=== PATIENT | female | born 1980 | race Caucasian/White ===

== ENCOUNTER 2018-08-20 22:42 | Emergency (ER) | payer MEDICAID ==
[~2018-08-20] VITALS: Ht 152.4 cm; Wt 61.7 kg
[2018-08-20 22:45] VITALS: BP 136/100
[2018-08-21] MEDS ORDERED: KETOROLAC 60 MG/2 ML VIAL IM ONE (00:15)
[2018-08-21 00:55] VITALS: BP 135/90
== END 2018-08-21 00:50 | disposition home or self-care (01) ==
LOC: MED 22:42
DX: G44.209 Tension-type headache, unspecified, not intractable (principal)
CPT/HCPCS: 70450; 81002; 81025; 96372; 99284; J1885

== ENCOUNTER 2020-01-26 18:39 | Emergency (ER) | payer MEDICAID ==
[~2020-01-26] VITALS: Ht 157.5 cm; Wt 70.3 kg
[2020-01-26 18:43] VITALS: BP 122/73
--- NOTE | 2020-01-26 18:43 | NUR ---
AMBULATED TO BED 9
--- NOTE | 2020-01-26 19:06 | NUR ---
REPORT RECEIVED FROM LYNDON RN, TRANSFER OF CARE AT THIS TIME
--- NOTE | 2020-01-26 19:25 | NUR ---
ERMD AT BEDSIDE
[2020-01-26] MEDS ORDERED: DICYCLOMINE HCL LIQUID 10 MG/5 ML UDC PO ONE (19:35)
[2020-01-26] MEDS ORDERED: PANTOPRAZOLE 40 MG TABEC PO ONE (19:35)
[2020-01-26] MEDS ORDERED: LIDOCAINE VISCOUS 2% 20 ML UDC PO ONE (19:35)
[2020-01-26] MEDS ORDERED: ALUMINUM HYD/MAG/SIMETHICONE 30 ML UDC PO ONE (19:35)
--- NOTE | 2020-01-26 19:45 | NUR ---
39 YEAR OLD FEMALE COMPLAINS OF COUGH X 3 DAYS AND UPPER EPIGASTRIC PAIN. PT DENIES CONTACT WITH COVID PT, COVID PRECAUTIONS INITITATED. PT STATES COUGH DRY. PT AOX4, BREATHING EVEN AND UNLABORED, SKIN WARM AND DRY. BED IN LOWEST POSITION, LOCKED, BED RAIL UPX1. PMH - DENIES ALLERGIES - NKA
[2020-01-26 20:35] VITALS: BP 128/65
--- NOTE | 2020-01-26 20:35 | NUR ---
Patient discharged with v/s stable. Written and verbal after care instructions given and explained. Patient alert, oriented and verbalized understanding of instructions. Ambulatory with steady gait. All questions addressed prior to discharge. ID band removed. Patient advised to follow up with PMD. Rx of protonix, carafate given. Patient educated on indication of medication including possible reaction and side effects. Opportunity to ask questions provided and answered. ERMD aware of patient's 103.0 temperature, states it is okay for discharge.
== END 2020-01-26 20:35 | disposition home or self-care (01) ==
LOC: MED 18:39
DX: K29.60 Other gastritis without bleeding (principal); R05 Cough; R50.9 Fever, unspecified
CPT/HCPCS: 71045; 99284; Q0092

== ENCOUNTER 2020-01-29 19:43 | Emergency (ER) | payer MEDICAID, SELFPAY ==
[~2020-01-29] VITALS: Ht 152.4 cm; Wt 70.3 kg
--- NOTE | 2020-01-29 19:45 | NUR ---
PT AMBUALTORY TO ROOM 9
[2020-01-29 19:46] VITALS: BP 126/65
[2020-01-29] MEDS ORDERED: KETOROLAC 30 MG/ML VIAL IVP ONE (20:25)
[2020-01-29] MEDS ORDERED: ONDANSETRON 4 MG/2 ML VIAL IVP ONE (20:25)
[2020-01-29] MEDS ORDERED: NACL 0.9% 1,000 ML IV ONE (20:25)
--- NOTE | 2020-01-29 20:25 | NUR ---
PT ASSESSMENT COMPLETE. PT PLACED IN GOWN AND ATTACHED TO CARDIAC MONITORING SYSTEM. SAFETY MEASURES IN PLACE. BED IN LOWEST POSITION. WILL CONTINUE TO MONITOR.
--- NOTE | 2020-01-29 20:45 | NUR ---
FLU SWAB AND BLOOD WORK COLLECTED. SAMPLES GIVEN TO LAB.
--- NOTE | 2020-01-29 20:55 | NUR ---
RAD AT BEDSIDE FOR CHEST XRAY
[2020-01-29 21:01] LABS: BASOPHILS # (AUTO) 0.1 K/uL (0.00-0.22); EOSINOPHILS # (AUTO) 0.1 K/uL (0-0.4); EOSINOPHILS % (AUTO) 0.7 % (0.0-4.0); HEMATOCRIT 32.7 % (36-48); HEMOGLOBIN 10.6 g/dL (12.0-16.0); LYMPHOCYTES # (AUTO) 2.1 K/uL (2.5-16.5); LYMPHOCYTES % (AUTO) 28.4 % (20.5-51.1); MEAN CORPUSCULAR HEMOGLOBIN 26 pg (27-31); MEAN CORPUSCULAR HGB CONC 33 g/dL (33-37); MEAN CORPUSCULAR VOLUME 78.9 fL (80-94); MONOCYTES # (AUTO) 0.4 K/uL (0.8-1.0); MONOCYTES % (AUTO) 5.5 % (1.7-9.3); NEUTROPHILS # (AUTO) 4.8 K/uL (1.8-7.7); NEUTROPHILS % (AUTO) 64.4 % (42.2-75.2); PLATELET COUNT (AUTO) 321 K/uL (140-450); RED BLOOD CELL COUNT(AUTO) 4.14 MIL/uL (4.20-5.40); RED CELL DISTRIBUTION WIDTH 15.1 % (11.6-13.7); WHITE BLOOD COUNT (AUTO) 7.4 K/uL (4.8-10.8)
[2020-01-29] MEDS ORDERED: AZITHROMYCIN 250 MG TAB PO ONE (21:55)
[2020-01-29 21:58] LABS: APPEARANCE,URINE SL CLOUDY (CLEAR); BILIRUBIN,URINE 1+ (NEGATIVE); BLOOD, URINE NEGATIVE (NEGATIVE); COLOR,URINE YELLOW (YELLOW); LEUKOCYTE ESTERASE ,URINE 1+ (NEGATIVE); NITRITE, URINE NEGATIVE (NEGATIVE); UGLUCOSE NEGATIVE (NEGATIVE)
[2020-01-29 22:10] LABS: RBC,URINE NONE SEEN /HPF (0-5)
--- NOTE | 2020-01-29 22:20 | NUR ---
PT LAYING DOWN IN BED. VISIBLE CHEST RISE AND FALL NOTED. O2 SAT AT 96%RA. PT HAS DECREASED PAIN LEVEL. WILL CONTINUE TO MONITOR.
[2020-01-29 22:30] LABS: ALBUMIN 3.7 g/dL (3.4-5.0); ANION GAP 17.7 (8-16); CARBON DIOXIDE 24.2 mmol/L (21-32); CREATININE 0.9 mg/dL (0.6-1.3); POTASSIUM 3.9 mmol/L (3.5-5.1); TOTAL BILIRUBIN 0.4 mg/dL (0.0-1.0)
[2020-01-29 22:52] VITALS: BP 101/47
--- NOTE | 2020-01-29 22:52 | NUR ---
Patient discharged with v/s stable. Written and verbal after care instructions given and explained. Patient alert, oriented and verbalized understanding of instructions. Ambulatory with steady gait. All questions addressed prior to discharge. ID band removed. Patient advised to follow up with PMD. Rx of AZITHROMYCIN AND PROMETHAZINE WITH CODEINE given. Patient educated on indication of medication including possible reaction and side effects. Opportunity to ask questions provided and answered. PT ADVISED TO TAKE COVID-19 PRECAUTIONS AND RESULTS WILL BE PHONED TO HER.
--- NOTE | 2020-02-01 01:00 | NUR ---
LATE ENTRY--RECEVIED A POSITIVE COVID SWAB. RESULT GIVEN TO INFECTION CONTROL OFFICE.
--- NOTE | 2020-02-01 16:58 | NUR ---
C&S RECEIVED FOR URINE CULTURE. NEW RX NEEDED TO GIVE PATIENT FOR URINE. RX CALLED IN FOR MACROBID 100MG PO BID X10 DAYS WAS CALLED INTO [facility] IN [place] FOR PATIENT. PT VERBALIZED UNDERSTANDING. PT ADVISED TO FOLLOW UP WITH PHARMACY IN 30 MINS.
== END 2020-01-29 22:52 | disposition home or self-care (01) ==
LOC: MED 19:43 → EEVIPCON 19:43 → MED 22:52
DX: U07.1 COVID-19 (principal); J18.9 Pneumonia, unspecified organism; N39.0 Urinary tract infection, site not specified; Z79.899 Other long term (current) drug therapy
CPT/HCPCS: 36415; 71045; 80053; 81001; 83605; 83690; 85025; 87040; 87086; 87186; 87804; 96361; 96374; 96375; 99284; C9803; J1885; J2405; J7030; U0003

== ENCOUNTER 2020-08-04 15:37 | Emergency (ER) | payer MEDICAID, SELFPAY ==
[~2020-08-04] VITALS: Ht 152.4 cm; Wt 68.0 kg
[2020-08-04 15:51] VITALS: BP 103/68
--- NOTE | 2020-08-04 15:57 | NUR ---
39/F BIB SELF C/O RIGHT FLANK PAIN 9/10 X 5 DAYS. DENIES DYSURIA.PMH: DENIES. DENIES N/V/D; SKIN IS PINK/WARM/DRY; AAOX4 WITH EVEN AND STEADY GAIT; LUNGS CLEAR BL; HR EVEN AND REGULAR; PT DENIES ANY FEVER, CP, SOB, OR COUGH AT THIS TIME; PATIENT STATES PAIN OF 9/10 AT THIS TIME.
[2020-08-04] MEDS ORDERED: HYDROcodone/APAP 5/325 MG 1 TAB TAB PO ONE (17:20)
[2020-08-04 17:33] VITALS: BP 103/68
--- NOTE | 2020-08-04 17:33 | NUR ---
Patient discharged with v/s stable. Written and verbal after care instructions given and explained. Patient alert, oriented and verbalized understanding of instructions. Ambulatory with steady gait. All questions addressed prior to discharge. ID band removed. Patient advised to follow up with PMD. Rx of TRAMADOL & BACTRIM given. Patient educated on indication of medication including possible reaction and side effects. Opportunity to ask questions provided and answered.
== END 2020-08-04 17:33 | disposition home or self-care (01) ==
LOC: MED 15:37
DX: N39.0 Urinary tract infection, site not specified (principal); Z90.49 Acquired absence of other specified parts of digestive tract; Z98.890 Other specified postprocedural states
CPT/HCPCS: 81002; 81025; 99283

== ENCOUNTER 2020-08-11 18:37 | Emergency (ER) | payer MEDICAID, SELFPAY ==
[~2020-08-11] VITALS: Ht 152.4 cm; Wt 68.0 kg
[2020-08-11 20:30] VITALS: BP 120/74
--- NOTE | 2020-08-11 20:33 | NUR ---
TO LOBBY A/W BED AMBULATORY
--- NOTE | 2020-08-11 21:11 | NUR ---
SEEN AND EXAMINED BY MICHAEL WITH ORDERS AND CARRIED OUT
[2020-08-11 22:04] LABS: BASOPHILS # (AUTO) 0.1 K/uL (0.00-0.22); BASOPHILS % (AUTO) 0.9 % (0.0-2.0); EOSINOPHILS # (AUTO) 0.3 K/uL (0-0.4); EOSINOPHILS % (AUTO) 3.1 % (0.0-4.0); HEMATOCRIT 33.4 % (36-48); HEMOGLOBIN 10.9 g/dL (12.0-16.0); LYMPHOCYTES # (AUTO) 4.2 K/uL (2.5-16.5); LYMPHOCYTES % (AUTO) 50.2 % (20.5-51.1); MEAN CORPUSCULAR HEMOGLOBIN 26 pg (27-31); MEAN CORPUSCULAR HGB CONC 33 g/dL (33-37); MEAN CORPUSCULAR VOLUME 80.7 fL (80-94); MONOCYTES # (AUTO) 0.7 K/uL (0.8-1.0); MONOCYTES % (AUTO) 8.4 % (1.7-9.3); NEUTROPHILS # (AUTO) 3.1 K/uL (1.8-7.7); NEUTROPHILS % (AUTO) 37.4 % (42.2-75.2); PLATELET COUNT (AUTO) 372 K/uL (140-450); RED BLOOD CELL COUNT(AUTO) 4.14 MIL/uL (4.20-5.40); RED CELL DISTRIBUTION WIDTH 17.7 % (11.6-13.7); WHITE BLOOD COUNT (AUTO) 8.3 K/uL (4.8-10.8)
[2020-08-11 22:20] LABS: ALBUMIN 4.2 g/dL (3.4-5.0); ANION GAP 11.9 (8-16); CARBON DIOXIDE 27.2 mmol/L (21-32); CREATININE 0.8 mg/dL (0.6-1.3); POTASSIUM 4.1 mmol/L (3.5-5.1); TOTAL BILIRUBIN 0.2 mg/dL (0.0-1.0)
--- NOTE | 2020-08-12 | NUR ---
RESULTS BACK AND NOTED BY ERMD AND FOR D/C
[2020-08-12 00:08] VITALS: BP 121/80
--- NOTE | 2020-08-12 00:08 | NUR ---
Patient discharged with v/s stable. Written and verbal after care instructions given and explained. Patient alert, oriented and verbalized understanding of instructions. Ambulatory with steady gait. All questions addressed prior to discharge. ID band removed. Patient advised to follow up with PMD. Rx of MOTRIN , PROTONIX given. Patient educated on indication of medication including possible reaction and side effects. Opportunity to ask questions provided and answered.
== END 2020-08-12 00:08 | disposition home or self-care (01) ==
LOC: MED 18:37
DX: K80.20 Calculus of gallbladder without cholecystitis without obstruction (principal)
CPT/HCPCS: 36415; 76705; 80053; 83690; 85025; 99284

== ENCOUNTER 2023-06-03 21:29 | Emergency (ER) | payer MEDICAID ==
[~2023-06-03] VITALS: Ht 152.4 cm; Wt 67.1 kg
[2023-06-03 22:40] VITALS: BP 102/56; PULSE 78; RESP 16; TEMP 97.6; O2SAT 99
[2023-06-04] MEDS ORDERED: BENZ150C2 PO (01:52)
[2023-06-04] MEDS ORDERED: DOXY-690 PO (01:52)
[2023-06-04 02:20] VITALS: BP 102/56; PULSE 78; RESP 16; TEMP 97.6; O2SAT 99
== END 2023-06-04 02:20 | disposition home or self-care (01) ==
LOC: MED 21:29
DX: J18.9 Pneumonia, unspecified organism (principal); J45.909 Unspecified asthma, uncomplicated; Z79.899 Other long term (current) drug therapy
CPT/HCPCS: 71045; 99283; Q0092

== ENCOUNTER 2023-07-04 09:52 | Emergency (ER) | payer MEDICAID ==
[~2023-07-04] VITALS: Ht 152.4 cm; Wt 65.5 kg
[~2023-07-04 09:52] MED LIST: BENZ150C2 PO; DOXY-690 PO
[2023-07-04 09:55] VITALS: BP 114/57; PULSE 80; RESP 18; TEMP 98.1; O2SAT 99
[2023-07-04] MEDS ORDERED: PRED20TA5 PO (10:40)
[2023-07-04 10:50] VITALS: BP 114/57; PULSE 80; RESP 18; TEMP 98.1; O2SAT 99
== END 2023-07-04 10:50 | disposition home or self-care (01) ==
LOC: MED 09:52
DX: H00.011 Hordeolum externum right upper eyelid (principal); R05.9 Cough, unspecified; Z79.899 Other long term (current) drug therapy; Z79.2 Long term (current) use of antibiotics
CPT/HCPCS: 99283

== ENCOUNTER 2023-09-09 18:54 | Emergency (ER) | payer MEDICAID ==
[~2023-09-09] VITALS: Ht 152.4 cm; Wt 68.3 kg
[~2023-09-09 18:54] MED LIST changes: +PRED20TA5 PO
[2023-09-09 19:27] VITALS: BP 138/81; PULSE 78; RESP 22; TEMP 97.1; O2SAT 97
[2023-09-09] MEDS ORDERED: ACETAMINOPHEN EXTRA STRENGTH 500 MG TAB PO ONE (20:15)
[2023-09-09 20:40] LABS: BASOPHILS # (AUTO) 0.1 K/uL (0.00-0.22); BASOPHILS % (AUTO) 0.5 % (0.0-2.0); EOSINOPHILS # (AUTO) 0.1 K/uL (0-0.4); EOSINOPHILS % (AUTO) 0.6 % (0.0-4.0); HEMATOCRIT 30.7 % (36-48); HEMOGLOBIN 9.5 g/dL (12.0-16.0); LYMPHOCYTES # (AUTO) 3.6 K/uL (2.5-16.5); LYMPHOCYTES % (AUTO) 25.8 % (20.5-51.1); MEAN CORPUSCULAR HEMOGLOBIN 22 pg (27-31); MEAN CORPUSCULAR HGB CONC 31 g/dL (33-37); MEAN CORPUSCULAR VOLUME 71.8 fL (80-94); MONOCYTES # (AUTO) 0.9 K/uL (0.8-1.0); MONOCYTES % (AUTO) 6.7 % (1.7-9.3); NEUTROPHILS # (AUTO) 9.3 K/uL (1.8-7.7); NEUTROPHILS % (AUTO) 66.4 % (42.2-75.2); PLATELET COUNT (AUTO) 452 K/uL (140-450); RED BLOOD CELL COUNT(AUTO) 4.28 MIL/uL (4.20-5.40); RED CELL DISTRIBUTION WIDTH 19.4 % (11.6-13.7); WHITE BLOOD COUNT (AUTO) 14.1 K/uL (4.8-10.8)
[2023-09-09 20:59] LABS: ALBUMIN 3.9 g/dL (3.4-5.0); ANION GAP 15.5 (8-16); CALCIUM 8.9 mg/dL (8.5-10.1); CARBON DIOXIDE 22.2 mmol/L (21-32); CREATININE 0.5 mg/dL (0.6-1.3); POTASSIUM 3.7 mmol/L (3.5-5.1); TOTAL BILIRUBIN 0.3 mg/dL (0.0-1.0); TOTAL PROTEIN, SERUM 7.9 g/dL (6.4-8.2)
[2023-09-09 21:55] LABS: APPEARANCE,URINE SL CLOUDY (CLEAR); BILIRUBIN,URINE 1+ (NEGATIVE); BLOOD, URINE 3+ (NEGATIVE); COLOR,URINE YELLOW (YELLOW); LEUKOCYTE ESTERASE ,URINE TRACE (NEGATIVE); NITRITE, URINE NEGATIVE (NEGATIVE); PROTEIN,URINE 1+ (NEGATIVE); UGLUCOSE NEGATIVE (NEGATIVE); UROBILINOGEN,URINE 0.2 EU/dL (0.2 - 1)
[2023-09-09 21:57] LABS: BACTERIA,URINE 0-2 /HPF (None Seen); ICTOTEST NEGATIVE (NEGATIVE); MUCUS,URINE None Seen /LPF (None Seen); RBC,URINE 20-50 /HPF (0-5); SQUAMOUS EPITHELIAL CELL,UR 0-3 (FEW) /LPF (0-3 (FEW)); WBC,URINE 0-5 /HPF (0-5)
[2023-09-09] MEDS ORDERED: ACET-10509 PO (22:51)
[2023-09-09] MEDS ORDERED: NITR100C7 PO (22:53)
== END 2023-09-09 23:09 | disposition home or self-care (01) ==
LOC: MED 18:54
DX: O20.0 Threatened abortion (principal); O23.41 Unspecified infection of urinary tract in pregnancy, first trimester; Z3A.01 Less than 8 weeks gestation of pregnancy; Z79.899 Other long term (current) drug therapy
CPT/HCPCS: 36415; 76817; 80053; 81001; 81025; 84702; 85025; 86886; 86900; 86901; 99284

== ENCOUNTER 2024-02-05 11:09 | Emergency (ER) | payer MEDICAID, OTHER ==
[~2024-02-05] VITALS: Ht 152.4 cm; Wt 70.3 kg
[~2024-02-05 11:09] MED LIST changes: +ACET-10509 PO; -BENZ150C2 PO; +BENZ150C7 PO; +NITR100C7 PO
[2024-02-05 11:16] VITALS: BP 118/53; PULSE 64; RESP 18; TEMP 98.4; O2SAT 100
[2024-02-05 12:08] LABS: BILIRUBIN,URINE NEGATIVE (NEGATIVE); BLOOD, URINE TRACE-I (NEGATIVE); COLOR,URINE YELLOW (YELLOW); LEUKOCYTE ESTERASE ,URINE TRACE (NEGATIVE); NITRITE, URINE NEGATIVE (NEGATIVE); PROTEIN,URINE NEGATIVE (NEGATIVE); UGLUCOSE NEGATIVE (NEGATIVE); UROBILINOGEN,URINE 0.2 EU/dL (0.2 - 1)
[2024-02-05 12:28] LABS: BACTERIA,URINE FEW /HPF (None Seen); RBC,URINE 0-5 /HPF (0-5); WBC,URINE 0-5 /HPF (0-5)
[2024-02-05 12:29] LABS: MUCUS,URINE 1+ /LPF (None Seen)
[2024-02-05 12:30] VITALS: TEMP 98.4
[2024-02-05 12:30] LABS: APPEARANCE,URINE SLIGHTLY HAZY (CLEAR)
[2024-02-05 13:18] LABS: BASOPHILS % (AUTO) 0.4 % (0.0-2.0); EOSINOPHILS # (AUTO) 0.2 K/uL (0-0.4); EOSINOPHILS % (AUTO) 1.9 % (0.0-4.0); HEMATOCRIT 36.3 % (36-48); HEMOGLOBIN 11.9 g/dL (12.0-16.0); LYMPHOCYTES # (AUTO) 3.4 K/uL (2.5-16.5); MEAN CORPUSCULAR HEMOGLOBIN 28 pg (27-31); MEAN CORPUSCULAR HGB CONC 33 g/dL (33-37); MONOCYTES # (AUTO) 0.8 K/uL (0.8-1.0); MONOCYTES % (AUTO) 7.8 % (1.7-9.3); NEUTROPHILS # (AUTO) 5.6 K/uL (1.8-7.7); NEUTROPHILS % (AUTO) 55.9 % (42.2-75.2); PLATELET COUNT (AUTO) 346 K/uL (140-450); RED BLOOD CELL COUNT(AUTO) 4.27 MIL/uL (4.20-5.40); RED CELL DISTRIBUTION WIDTH 15.1 % (11.6-13.7); WHITE BLOOD COUNT (AUTO) 10.1 K/uL (4.8-10.8)
[2024-02-05 14:30] VITALS: BP 125/64; PULSE 64; RESP 18; O2SAT 99
== END 2024-02-05 14:55 | disposition home or self-care (01) ==
LOC: MED 11:09
DX: O34.81 Maternal care for other abnormalities of pelvic organs, first trimester (principal); D27.1 Benign neoplasm of left ovary; D27.0 Benign neoplasm of right ovary; Z3A.01 Less than 8 weeks gestation of pregnancy; Z98.890 Other specified postprocedural states; Z79.1 Long term (current) use of non-steroidal anti-inflammatories (NSAID); Z79.899 Other long term (current) drug therapy
CPT/HCPCS: 36415; 76817; 81001; 81025; 84702; 85025; 86900; 86901; 99285; Q0092

== ENCOUNTER 2024-02-23 19:56 | Emergency (ER) | payer OTHER ==
[~2024-02-23] VITALS: Ht 152.4 cm; Wt 70.3 kg
[2024-02-23 20:30] VITALS: BP 135/65; PULSE 66; RESP 17; TEMP 98.3; O2SAT 99
[2024-02-23 21:21] LABS: BASOPHILS % (AUTO) 0.4 % (0.0-2.0); EOSINOPHILS # (AUTO) 0.2 K/uL (0-0.4); EOSINOPHILS % (AUTO) 1.8 % (0.0-4.0); HEMATOCRIT 35.3 % (36-48); HEMOGLOBIN 11.8 g/dL (12.0-16.0); LYMPHOCYTES # (AUTO) 2.8 K/uL (2.5-16.5); LYMPHOCYTES % (AUTO) 27.1 % (20.5-51.1); MEAN CORPUSCULAR HEMOGLOBIN 29 pg (27-31); MEAN CORPUSCULAR HGB CONC 34 g/dL (33-37); MEAN CORPUSCULAR VOLUME 84.9 fL (80-94); MONOCYTES # (AUTO) 0.8 K/uL (0.8-1.0); MONOCYTES % (AUTO) 8.1 % (1.7-9.3); NEUTROPHILS # (AUTO) 6.5 K/uL (1.8-7.7); NEUTROPHILS % (AUTO) 62.6 % (42.2-75.2); PLATELET COUNT (AUTO) 338 K/uL (140-450); RED BLOOD CELL COUNT(AUTO) 4.16 MIL/uL (4.20-5.40); RED CELL DISTRIBUTION WIDTH 15.9 % (11.6-13.7); WHITE BLOOD COUNT (AUTO) 10.3 K/uL (4.8-10.8)
[2024-02-23 22:06] LABS: APPEARANCE,URINE CLEAR (CLEAR); BILIRUBIN,URINE NEGATIVE (NEGATIVE); BLOOD, URINE NEGATIVE (NEGATIVE); COLOR,URINE YELLOW (YELLOW); LEUKOCYTE ESTERASE ,URINE NEGATIVE (NEGATIVE); NITRITE, URINE NEGATIVE (NEGATIVE); PROTEIN,URINE NEGATIVE (NEGATIVE); UGLUCOSE NEGATIVE (NEGATIVE); UROBILINOGEN,URINE 0.2 EU/dL (0.2 - 1)
[2024-02-23] MEDS: ACETAMINOPHEN EXTRA STRENGTH 500 MG TAB PO ONE (23:02)
[2024-02-24 03:21] VITALS: BP 125/69; PULSE 71; RESP 14; O2SAT 99
== END 2024-02-24 03:30 | disposition home or self-care (01) ==
LOC: MED 19:56
DX: O26.892 Other specified pregnancy related conditions, second trimester (principal); R10.30 Lower abdominal pain, unspecified; Z3A.15 15 weeks gestation of pregnancy; Z79.1 Long term (current) use of non-steroidal anti-inflammatories (NSAID); Z79.2 Long term (current) use of antibiotics; Z79.899 Other long term (current) drug therapy
CPT/HCPCS: 36415; 76817; 81003; 81025; 84702; 85025; 99285; Q0092